=== PATIENT | male | born 1990 | race Caucasian/White ===

== ENCOUNTER 2017-10-27 15:37 | Emergency (ER) | payer SELFPAY ==
[~2017-10-27] VITALS: Ht 190.5 cm; Wt 95.3 kg
[2017-10-27] MEDS ORDERED: NKM (15:55)
[2017-10-27] MEDS ORDERED: Norco 5mg/325mg tab PO ONE (16:15)
[2017-10-27] MEDS ORDERED: traMADol 50mg tab ORAL ONE (16:30)
[2017-10-27] MEDS ORDERED: TRAMADOL HCL50 MG ORAL (17:02)
[2017-10-27 17:05] VITALS: BP 121/82
--- NOTE | 2017-10-27 17:05 | Diagnostic Imaging Report ---
Indications: Reason For Exam: PAIN Technique: Three views of the right knee Comparison: None Findings: No acute fractures. No dislocations. Joint spaces are preserved. No radiopaque foreign body. Normal mineralization. Impression: No acute process
--- NOTE | 2017-10-27 17:19 | Emergency Room Report ---
History of Present Illness General Chief Complaint: Lower Extremity Injury Source: Patient Present Illness HPI 27-year-old male presents ED for evaluation. Patient complaining of right knee pain states yesterday he had a mechanical trip and fall leaving the bathroom at [facility]. States he felt his knee twist as he fell. Patient presenting with right knee pain, swelling and bruising. Pain is throbbing, 8 out of 10, nonradiating. Denies any other injuries. No other aggravating relieving factors. Denies any other associated symptoms Allergies: Uncoded Allergies: PENICILLIN (Allergy, Unknown, 10/27/17) Patient History Past Medical History: none Past Surgical History: none Pertinent Family History: none Social History: Denies: smoking, alcohol use, drug use Immunizations: UTD Reviewed Nursing Documentation: PMH: Agreed; PSxH: Agreed Nursing Documentation-PMH Past Medical History: No Stated History Review of Systems All Other Systems: negative except mentioned in HPI Physical Exam Vital Signs Date Time Temp Pulse Resp B/P (MAP) Pulse Ox O2 Delivery O2 Flow Rate FiO2 10/27/17 15:52 98.4 85 16 121/82 98 Room Air 98.4 Sp02 EP Interpretation: reviewed, normal General Appearance: no apparent distress, alert, GCS 15, non-toxic Head: normocephalic, atraumatic Eyes: bilateral eye normal inspection, bilateral eye PERRL ENT: hearing grossly normal, normal pharynx, no angioedema, normal voice Neck: full range of motion, supple/symm/no masses Respiratory: chest non-tender, lungs clear, normal breath sounds, speaking full sentences Cardiovascular #1: regular rate, rhythm, no edema Cardiovascular #2: 2+ carotid (R), 2+ carotid (L), 2+ radial (R), 2+ radial (L) , 2+ dorsalis pedis (R), 2+ dorsalis pedis (L) Gastrointestinal: normal bowel sounds, non tender, soft, non-distended, no guarding, no rebound Rectal: deferred Genitourinary: normal inspection, no CVA tenderness Musculoskeletal: back normal, gait/station normal, decreased range of motion, swelling - R knee Neurologic: alert, oriented x3, responsive, motor strength/tone normal, sensory intact, speech normal Psychiatric: judgement/insight normal, memory normal, mood/affect normal, no suicidal/homicidal ideation Reflexes: 3+ bicep (R), 3+ bicep (L), 3+ tricep (R), 3+ tricep (L), 3+ knee (R) , 3+ knee (L) Skin: normal color, no rash, warm/dry, well hydrated Lymphatic: no adenopathy Procedures Splinting Splinting : Consent: Verbal Pre-Made Type: knee immobilizer Pre-Proc Neuro Vasc Exam: normal Post-Proc Neuro Vasc Exam: normal Patient Tolerated: Well Complications: None Medical Decision Making Diagnostic Impression: Primary Impression: Knee injury Qualified Codes: S89.91XA - Unspecified injury of right lower leg, initial encounter ER Course Hospital Course 27-year-old M presents to ED complaining of R knee pain s/p trip and fall Differential diagnoses include: Fracture, dislocation, sprain, contusion Clinical course Patient placed on stretcher. After initial history and physical, I ordered pain medications and Xrays of R knee Xrays prelim read shows no acute fracture/dislocation. placed in knee immobilizer, given crutches discussed findings with patient. likely sprain. i will provide ortho referral Diagnosis - knee injury Stable and discharged to home with prescription for Tramadol. apply ice, keep elevated. weight bear as tolerated. Followup with Ortho. Return to ED if symptoms recur or worsen Other X-Ray Diagnostic Results Other X-Ray Diagnostic Results : X-Ray ordered: R knee # of Views/Limited Vs Complete: 3 View Indication: Pain EP Interpretation: Yes Interpretation: no dislocation, no soft tissue swelling, no fractures Impression: No acute disease Electronically Signed by: Electronically signed by Wilner Ramos MD Last Vital Signs Date Time Temp Pulse Resp B/P (MAP) Pulse Ox O2 Delivery O2 Flow Rate FiO2 10/27/17 16:23 98.4 10/27/17 15:52 85 16 121/82 98 Room Air Status: improved Disposition: HOME, SELF-CARE Condition: Stable Scripts Tramadol Hcl* (ULTRAM*) 50 Mg Tablet 50 MG ORAL Q6H PRN for For Pain, #20 TAB 0 Refills Prov: Wilner Ramos MD 10/27/17 Referrals: Vitaliy Brennan MD NOT CHOSEN [facility]/MD,REFERRING (PCP) Patient Instructions: Knee Sprain, [id number] Wilner Ramos MD October 27, 2017 17:19
== END 2017-10-27 16:55 | disposition home or self-care (01) ==
LOC: EMR 16:42
DX: S89.81XA Other specified injuries of right lower leg, initial encounter (principal); W01.0XXA Fall on same level from slipping, tripping and stumbling without subsequent striking against object, initial encounter; Y92.511 Restaurant or cafe as the place of occurrence of the external cause; Z88.0 Allergy status to penicillin
CPT/HCPCS: 99283